=== PATIENT | female | born 1990 | race Caucasian/White ===

== ENCOUNTER → 2017-04-19 | Outpatient (CLI) | payer OTHER ==
[2017-04-19 16:35] LABS: HGB 10.6 gm/dL (11.4-16.0); MCH 30.7 pg (25.0-35.0); MCV 90.3 fL (80.0-100.0); Mean Platelet Volume 8.2; Platelet Count 213 k/uL (150-450); RBC 3.44 m/uL (3.80-5.40); RDW 13.5 % (11.5-15.5); WBC 8.9 k/uL (3.8-10.6)
[2017-04-19 16:38] LABS: Glucose 94 mg/dL (74-99)
[2017-04-20 01:23] LABS: HIV AB P24 Non-Reactive (Non-Reactive); HIV P24 AG Non-Reactive (Non-Reactive)
--- NOTE | 2017-04-20 07:49 | US ---
EXAMINATION TYPE: US OB <= 14 wk fetus DATE OF EXAM: 04/19/2017 COMPARISON: US 2017 CLINICAL HISTORY: Z36 Confirm Dates. Confirm dates, 3, para 2 EXAM PERFORMED: Transabdominal (TA) EXAM MEASUREMENTS: GESTATIONAL AGE / DATING Physician Established: (14 weeks/1 days) EDC: 10/17/2017 Dates by LMP: (14 weeks/1 days) EDC: 10/17/2017 Dates by First Scan: No pole seen at this time Dates by Current Scan for: (13 weeks/4 days) EDC: 10/21/2017 MATERNAL ANATOMY Uterus: 15.3 x 10.0 x 7.2cm, anteverted Right Ovary: 4.3 x 2.4 x 2.3cm Left Ovary: 3.0 x 1.9 x 1.8cm Post CDS / Adnexa: wnl Presence of free fluid: no Presence of corpus luteal cyst: right ovary: 1.8 x 1.6 x 1.5cm hypoechoic area, probable corpus luteu m Presence of subchorionic bleed: no GESTATION / SURVEY CRL: 7.5cm (13 weeks/4 days) Yolk Sac (normal less than 6mm): not seen at this time Heart Rate: 142 bpm Rhythm: Normal IUP: Live IUP Date of LMP: 01/10/2017 Live single IUP measuring 13 weeks 4 days with a heart rate of 142bpm and an estimated delivery date of 10/21/2017. IMPRESSION: Single live intrauterine with a sonographic age of 13 weeks and 4 days and estimated date o f delivery of 10/21/2017. Dates are concordant with menstrual age.
== END | disposition home or self-care (01) ==
LOC: RADUSWWP 15:30
PROVIDERS: ATTEND Obstetrics & Gynecology
DX: Z36.89 Encounter for other specified antenatal screening (principal); O26.812 Pregnancy related exhaustion and fatigue, second trimester; Z3A.13 13 weeks gestation of pregnancy
CPT/HCPCS: 36415; 76801; 82565; 82947; 85027; 86762; 86780; 86850; 86900; 86901; 87340; 87390

== ENCOUNTER 2017-06-05 20:40 | Emergency (ER) | payer OTHER ==
[2017-06-05 21:02] VITALS: TEMP 98.6
[2017-06-05] MEDS ORDERED: SODIUM CHLORIDE 0.9% 1,000 ML IV STA ×2 (21:13→22:42)
--- NOTE | 2017-06-05 21:23 | ED ---
Dizziness HPI <Melecio Luciano - Last Filed: 06/05/17 22:58> - General Source: patient, RN notes reviewed Mode of arrival: wheelchair Limitations: no limitations <Diane Stone - Last Filed: 06/05/17 23:45> - General Chief Complaint: Dizziness Stated Complaint: Dizzy 20 wks Time Seen by Provider: 06/05/17 21:04 - History of Present Illness Initial Comments: This is a 26-year-old female who is 20 weeks who presents to the emergency department with chief complaint of dizziness. Patient states that for the last week she has been having episodes of dizziness, where she feels that she is going to pass out. Patient states that dizziness comes on frequently throughout the day and is not dependent on position. However, she does state that she experiences less episodes of dizziness while she is sitting down. She states that she has been trying to stay hydrated by drinking playing of fluids. She states that earlier today she was standing up when the dizziness came on. She felt like she was going to pass out and that her vision was tunneling. She states that she sat down and gradually the dizziness went away. Patient denies any abdominal pain, nausea or vomiting, diarrhea or constipation, vaginal bleeding or discharge. (Diane Stone) - Related Data Home Medications Medication Instructions Recorded Confirmed Hix-Ctae-Tfheq Acid 1 cap PO HS 06/05/17 06/05/17 [-U Capsule (formulary)] Allergies Allergy/AdvReac Type Severity Reaction Status Date / Time No Known Allergies Allergy Verified 06/05/17 21:38 Review of Systems ROS Other: All systems not noted in ROS Statement are negative. <Melecio Luciano - Last Filed: 06/05/17 22:58> ROS Other: All systems not noted in ROS Statement are negative. <Diane Stone - Last Filed: 06/05/17 23:45> ROS Statement: Those systems with pertinent positive or pertinent negative responses have been documented in the HPI. Past Medical History Past Medical History: No Reported History History of Any Multi-Drug Resistant Organisms: None Reported Past Surgical History: No Surgical Hx Reported Past Psychological History: No Psychological Hx Reported Smoking Status: Current every day smoker Past Alcohol Use History: Rare Past Drug Use History: None Reported <Diane Stone - Last Filed: 06/05/17 23:45> General Exam <Melecio Luciano - Last Filed: 06/05/17 22:58> Limitations: no limitations <Diane Stone - Last Filed: 06/05/17 23:45> - General Exam Comments Initial Comments: General: Awake and alert, well-developed; in no apparent distress. HEENT: Head atraumatic, normocephalic. Pupils are equal, round and reactive to light. Extraocular movements intact. Oropharynx moist without erythema or exudate. Neck: Supple. Normal ROM. Cardiovascular: Regular rate and rhythm. No murmurs, rubs or gallops. Chest symmetrical. Respiratory: Lungs clear to auscultation bilaterally. No wheezes, rales or rhonchi. Normal respiratory effort with no use of accessory muscles. Abdomen: Soft, non-tender, non-distended. No rigidity, rebound or guarding. Normal bowel sounds in all 4 quadrants. Musculoskeletal: Normal ROM, no tenderness bilateral upper and lower extremities. Ambulating normally. Skin: [place], warm and dry without rashes or lesions. Neurological: Alert and oriented x3. CN II-XII grossly intact. Speech is fluent and answers are appropriate. No focal neuro deficits. Psychiatric: Normal mood and affect. No overt signs of depression or anxiety noted. (Diane Stone) Vital Signs 06/05/17 06/05/17 06/05/17 20:57 21:55 22:30 Temperature 98.6 F Pulse Rate 110 H 84 83 Respiratory 20 19 16 Rate Blood Pressure 113/66 95/66 89/56 O2 Sat by Pulse 99 100 100 Oximetry 06/05/17 06/05/17 23:00 23:43 Temperature Pulse Rate 82 77 Respiratory 16 16 Rate Blood Pressure 97/63 92/58 O2 Sat by Pulse 99 100 Oximetry EKG Findings - EKG Comments: EKG Findings:: 21:18:56. Normal sinus rhythm. Ventricular 76 bpm, SD interval 134, QRS duration 82, QT/QTC 384/432. <Diane Stone - Last Filed: 06/05/17 23:45> Medical Decision Making - Lab Data Result diagrams: 06/05/17 21:25 06/05/17 21:25 <Melecio Luciano - Last Filed: 06/05/17 22:58> - Lab Data Result diagrams: 06/05/17 21:25 06/05/17 21:25 <Diane Stone - Last Filed: 06/05/17 23:45> - Medical Decision Making 20 several female approximately 20 weeks presenting with lightheadedness and near syncope. Patient has no associated symptoms, no URI symptoms, no fever, no dysuria, no abdominal pain, no vaginal discharge or vaginal bleeding. heart tones are normal. Patient is given IV hydration emergency department for mild hypertension. Case is discussed with Dr. Perez who is patient's RAMP SERVICE AGENT, he recommends continue oral rehydration and outpatient follow-up. (Melecio Luciano) This is a 26-year-old female presents to the emergency department with chief complaint of dizziness. Patient is currently 20 weeks . Patient denies any associated symptoms such as nausea or vomiting, vaginal bleeding or discharge, abdominal pain. CBC revealed a hemoglobin of 9.6. CMP and urinalysis were unremarkable. Throughout emergency department visit, patient was noted to be hypotensive. She received 2 L boluses of normal saline. This case was discussed with attending physician, Dr. Luciano who was in contact with patient's RAMP SERVICE AGENT, Dr. Dumont. It was recommended that patient be discharged home with oral rehydration. She is to follow-up with SYSTEM DEVELOPMENT MANAGER. Patient is in no acute distress and will be discharged home. She is in agreement voices understanding. All questions were answered. (Diane Stone) - Lab Data Lab Results 06/05/17 06/05/17 06/05/17 Range/Units 21:25 21:25 21:25 WBC 7.3 (3.8-10.6) k/uL RBC 3.24 L (3.80-5.40) m/uL Hgb 9.6 L (11.4-16.0) gm/dL Hct 28.7 L (34.0-46.0) % MCV 88.5 (80.0-100.0) fL MCH 29.5 (25.0-35.0) pg MCHC 33.4 (31.0-37.0) g/dL RDW 13.3 (11.5-15.5) % Plt Count 234 (150-450) k/uL Neutrophils % 63 % Lymphocytes % 27 % Monocytes % 5 % Eosinophils % 3 % Basophils % 0 % Neutrophils # 4.5 (1.3-7.7) k/uL Lymphocytes # 2.0 (1.0-4.8) k/uL Monocytes # 0.4 (0-1.0) k/uL Eosinophils # 0.2 (0-0.7) k/uL Basophils # 0.0 (0-0.2) k/uL Sodium 136 L (137-145) mmol/L Potassium 4.0 (3.5-5.1) mmol/L Chloride 108 H (98-107) mmol/L Carbon Dioxide 20 L (22-30) mmol/L Anion Gap 8 mmol/L BUN 8 (7-17) mg/dL Creatinine 0.52 (0.52-1.04) mg/dL Est GFR (CKD-EPI)AfAm >90 (>60 ml/min/1.73 sqM) Est GFR (CKD-EPI)NonAf >90 (>60 ml/min/1.73 sqM) Glucose 82 (74-99) mg/dL Calcium 8.6 (8.4-10.2) mg/dL Total Bilirubin 0.4 (0.2-1.3) mg/dL AST 23 (14-36) U/L ALT 39 (9-52) U/L Alkaline Phosphatase 55 (38-126) U/L Total Protein 6.0 L (6.3-8.2) g/dL Albumin 3.3 L (3.5-5.0) g/dL Urine Color Yellow Urine Appearance Turbid H (Clear) Urine pH 6.5 (5.0-8.0) Ur Specific [place] 1.016 (1.001-1.035) Urine Protein Negative (Negative) Urine Glucose (UA) Negative (Negative) Urine Ketones Negative (Negative) Urine Blood Negative (Negative) Urine Nitrite Negative (Negative) Urine Bilirubin Negative (Negative) Urine Urobilinogen <2.0 (<2.0) mg/dL Ur Leukocyte Esterase Negative (Negative) Urine RBC 16 H (0-5) /hpf Ur Squamous Epith Cells 1 (0-4) /hpf Amorphous Sediment Rare H (None) /hpf Urine Mucus Few H (None) /hpf Disposition <Melecio Luciano - Last Filed: 03/20/18 22:58> <Diane Stone - Last Filed: 06/05/17 23:45> Clinical Impression: Dizziness Disposition: HOME SELF-CARE Condition: Good Instructions: Dizziness (ED) Additional Instructions: Please increase oral fluid intake. Please follow up with Dr. Dumont within the next couple of days. Please follow up with primary care provider within 1-2 days. Return to emergency department if symptoms should worsen or any concerns arise. Referrals: Frank Fuentes Jr, DO [Primary Care Provider] - 1-2 days
[2017-06-05 21:33] LABS: Basophils % (A) 0 %; Eosinophils # (A) 0.2 k/uL (0-0.7); Eosinophils % (A) 3 %; HCT 28.7 % (34.0-46.0); HGB 9.6 gm/dL (11.4-16.0); Lymphocytes % (A) 27 %; MCH 29.5 pg (25.0-35.0); MCHC 33.4 g/dL (31.0-37.0); MCV 88.5 fL (80.0-100.0); Mean Platelet Volume 7.7; Monocytes # (A) 0.4 k/uL (0-1.0); Monocytes % (A) 5 %; Neutrophils # (A) 4.5 k/uL (1.3-7.7); Neutrophils % (A) 63 %; Platelet Count 234 k/uL (150-450); RBC 3.24 m/uL (3.80-5.40); RDW 13.3 % (11.5-15.5); WBC 7.3 k/uL (3.8-10.6)
[2017-06-05 21:37] LABS: Amorphous Sediment,Urine Rare /hpf; Appearance,Urine Turbid (Clear); Bilirubin,Urine Negative (Negative); Blood,Urine Negative (Negative); Color,Urine Yellow; Glucose,Urine (UA) Negative (Negative); Ketones,Urine Negative (Negative); Leukocyte Esterase,Urine Negative (Negative); Mucus,Urine Few /hpf; Nitrite,Urine Negative (Negative); PH, Urine 6.5 (5.0-8.0); Protein,Urine Negative (Negative); RBC,Urine 16 /hpf (0-5); Specific Gravity,Urine 1.016 (1.001-1.035); Squamous Epithelial Cell,Urine 1 /hpf (0-4); Urobilinogen,Urine <2.0 mg/dL (<2.0)
[2017-06-05 21:53] LABS: ALT 39 U/L (9-52); AST 23 U/L (14-36); Albumin 3.3 g/dL (3.5-5.0); Alkaline Phosphatase 55 U/L (38-126); Anion Gap 8 mmol/L; Blood Urea Nitrogen 8 mg/dL (7-17); Calcium 8.6 mg/dL (8.4-10.2); Carbon Dioxide 20 mmol/L (22-30); Chloride 108 mmol/L (98-107); Glucose 82 mg/dL (74-99); Sodium 136 mmol/L (137-145); Total Bilirubin 0.4 mg/dL (0.2-1.3)
[2017-06-05 22:38] VITALS: RESP 16
[2017-06-05 23:44] VITALS: BP 92/58; PULSE 77
== END 2017-06-06 00:20 | disposition home or self-care (01) ==
LOC: EC 20:40
DX: O99.89 Other specified diseases and conditions complicating pregnancy, childbirth and the puerperium (principal); R42 Dizziness and giddiness; O99.332 Smoking (tobacco) complicating pregnancy, second trimester; F17.200 Nicotine dependence, unspecified, uncomplicated; Z3A.20 20 weeks gestation of pregnancy
CPT/HCPCS: 36415; 80053; 81001; 85025; 93005; 99284

== ENCOUNTER 2017-06-11 08:41 | Outpatient (CLI) | payer OTHER ==
[2017-06-11 09:18] VITALS: BP 96/51; PULSE 83; RESP 18; TEMP 98.1
--- NOTE | 2017-06-13 20:19 | P.MSEPDOC ---
Presenting Problems - Arrival Data Date of Arrival on Unit: 06/11/17 Time of Arrival on Unit: 08:50 Mode of Transport: Wheelchair - Complaint OB-Reason for Admission/Chief Complaint: Pain Medical History - Information : 3 Para: 2 Term: 2 : 0 Abortions: Spontaneous or Elective: 0 Number of Living Children: 2 - Gestational Age Gestational Age by LOVE (wks/days): 21 Weeks and 1 Days Review of Systems - Review of Systems Constitutional: No problems Breast: No problems ENT: No problems Cardiovascular: No problems Respiratory: No problems Gastrointestinal: No problems Genitourinary: No problems Musculoskeletal: No problems Neurological: No problems Skin: No problems Vital Signs - Temperature Temperature: 98.1 F Temperature Source: Temporal Artery Scan - Pulse Right Brachial Pulse Rate: 83 - Respirations Respiratory Rate: 18 Oxygen Delivery Method: Room Air O2 Sat by Pulse Oximetry: 97 - Blood Pressure Right Arm Blood Pressure: 96/51 Blood Pressure Mean: 66 Blood Pressure Source: Automatic Cuff Medical Screen Scoring (Pre) - Cervical Exam Dilation: 0 cm = 0 Membranes: Intact - Uterine Contractions Frequency: N/A - Maternal Vital Signs Maternal Temperature: N/A Maternal Blood Pressure: N/A Signs of Preeclampsia: N/A Maternal Respirations: N/A - Pain Assessment Pain Location and Character: Back, Abdomen Pain Scale Used: Numeric (1 - 10) Pain Intensity: 5 Pain Management Goal: 2 Pain Description: *Acute, Cramping Pain Frequency: Intermittent Pain Behavior: Vocalization Pain Aggravating Factors: Walking Non-Pharmacological Interventions: Darkened Room, Distraction, Reduce Environmental Stimuli, Relaxation Technique - Assessment Baseline FHR: 128 Heart Rate - NICHD Category: Category I (Normal) = 0 Position: N/A Station: N/A - Total Score Total Score (Pre): 0 Physician Notification (Pre) - Physician Notified Physician Notified Date: 06/11/17 Physician Notified Time: 09:38 Physician/Practitioner Notifed:: dr monterroso Spoke With: dr monterroso - Notification Comment Comment: may discharge home Disposition - Disposition OB Disposition: Triage, Discharge to home, Written follow up instructions reviewed Discharge Date: 06/11/17 Discharge Time: 09:45 I agree with the RN Medical Screening Exam: Yes Risk & Benefit of care provided described in d/c instruction: Yes Diagnosis: FALSE LABOR BEFORE 37 COMPLETED WEEKS OF GEST, THIRD TRI
== END 2017-06-11 09:45 | disposition home or self-care (01) ==
LOC: FBPOP 08:41
PROVIDERS: ATTEND Obstetrics & Gynecology
DX: O47.03 False labor before 37 completed weeks of gestation, third trimester (principal); Z3A.21 21 weeks gestation of pregnancy
CPT/HCPCS: 99213

== ENCOUNTER → 2017-07-16 | Outpatient (CLI) | payer OTHER ==
[2017-07-16 11:50] LABS: HCT 28.3 % (34.0-46.0); HGB 9.5 gm/dL (11.4-16.0); MCH 30.3 pg (25.0-35.0); MCHC 33.6 g/dL (31.0-37.0); MCV 90.1 fL (80.0-100.0); Mean Platelet Volume 7.8; Platelet Count 244 k/uL (150-450); RBC 3.14 m/uL (3.80-5.40); RDW 13.5 % (11.5-15.5); WBC 10.2 k/uL (3.8-10.6)
== END | disposition home or self-care (01) ==
LOC: LABWHC1 10:32
PROVIDERS: ATTEND Obstetrics & Gynecology
DX: Z34.82 Encounter for supervision of other normal pregnancy, second trimester (principal)
CPT/HCPCS: 36415; 82950; 85027

== ENCOUNTER 2017-10-10 07:54 | Inpatient (IN) | payer OTHER ==
[2017-10-10] MEDS: LACTATED RINGERS 1,000 ML IV SCH ×2 (08:45→12:38)
[2017-10-10] MEDS ORDERED: OXYTOCIN 10 UNIT/ML 1 ML VIAL IM PRN (08:52)
[2017-10-10] MEDS ORDERED: LIDOCAINE 1% (PF) 10 MG/ML (30 ML SDV) SQ PRN (08:52)
[2017-10-10] MEDS ORDERED: CARBOPROST TROMETHAMINE 250 MCG/ML 1 ML AMP IM PRN (08:52)
[2017-10-10] MEDS ORDERED: TERBUTALINE 1 MG/ML VIAL SQ PRN (08:52)
[2017-10-10] MEDS ORDERED: METHYLERGONOVINE 0.2 MG/ML 1 ML AMP IM PRN (08:52)
[2017-10-10] MEDS ORDERED: OXYTOCIN 20 UNITS/1000 ML NS 1,000 ML IV SCH ×2 (09:00→14:33)
[2017-10-10 09:08] LABS: Basophils % (A) 0 %; Eosinophils # (A) 0.2 k/uL (0-0.7); Eosinophils % (A) 1 %; HCT 28.7 % (34.0-46.0); HGB 9.3 gm/dL (11.4-16.0); Lymphocytes # (A) 1.8 k/uL (1.0-4.8); Lymphocytes % (A) 18 %; MCH 27.7 pg (25.0-35.0); MCHC 32.4 g/dL (31.0-37.0); MCV 85.6 fL (80.0-100.0); Mean Platelet Volume 7.2; Monocytes # (A) 0.4 k/uL (0-1.0); Monocytes % (A) 4 %; Neutrophils # (A) 7.7 k/uL (1.3-7.7); Neutrophils % (A) 74 %; Platelet Count 306 k/uL (150-450); RBC 3.35 m/uL (3.80-5.40); RDW 14.5 % (11.5-15.5); WBC 10.4 k/uL (3.8-10.6)
[2017-10-10 09:18] VITALS: BMI 32.3
--- NOTE | 2017-10-10 10:54 | P.HPOB ---
History of Present Illness H&P Date: 10/10/17 Chief Complaint: Leaking of fluid. This patient is a pleasant 27-year-old 3 para 2 female estimated date of confinement 10/21/2017 estimated gestational age 38-1/2 weeks who presents to labor and delivery with complaint a gush of fluid around 6 this morning. Patient's found to have gross rupture membranes in early labor. care has been uncomplicated, with the exception of chronic anemia. Review of Systems Constitutional: Denies chills, Denies fever Gastrointestinal: Reports heartburn Genitourinary: Reports Menstruation: Reports amenorrhea Past Medical History Past Medical History: Asthma Additional Past Medical History / Comment(s): Chronic anemia History of Any Multi-Drug Resistant Organisms: None Reported Past Surgical History: No Surgical Hx Reported Past Anesthesia/Blood Transfusion Reactions: No Reported Reaction Past Psychological History: No Psychological Hx Reported Smoking Status: Never smoker Past Alcohol Use History: None Reported Past Drug Use History: None Reported - Past Family History Father Family Medical History: No Reported History Medications and Allergies Home Medications Medication Instructions Recorded Confirmed Type Pje-Kaaa-Nshfg Acid 1 cap PO HS 06/05/17 10/10/17 History [-U Capsule (formulary)] Allergies Allergy/AdvReac Type Severity Reaction Status Date / Time No Known Allergies Allergy Verified 06/11/17 09:07 Exam Vital Signs Temp Pulse Resp BP Pulse Ox 10/10/17 09:05 98.2 F 98 17 112/65 98 10/10/17 07:58 98.3 F 98 17 112/65 99 Intake and Output 10/09/17 10/10/17 10/10/17 22:59 06:59 14:59 Other: Weight 90.718 kg - OBG Physical Exam Abdomen: bowel sounds normal, no diffuse tenderness, no bruit present, no guarding noted, no hepatomegaly, no splenomegaly, no mass Vulva: both: normal Vagina: no discharge Cervix: no lesion (Cervix is 4 cm dilated 80% effaced.), no discharge Uterus: enlarged (Fundal height is 38 cm) Results blood work shows she is A positive, rubella immune, RPR nonreactive, hepatitis B is negative, HIV is nonreactive, Glucola was normal, ultrasounds have been normal, group B strep was negative Result Diagrams: 10/10/17 08:45 Abnormal Lab Results - Last 24 Hours (Table) 10/10/17 Range/Units 08:45 RBC 3.35 L (3.80-5.40) m/uL Hgb 9.3 L (11.4-16.0) gm/dL Hct 28.7 L (34.0-46.0) % Assessment and Plan Assessment: This is a pleasant 27-year-old 3 para 2 female 38 and half weeks gestation with spontaneous rupture membranes. Plan is augmentation of labor as needed and anticipate vaginal delivery. (1) Spontaneous rupture of amniotic membranes Current Visit: Yes Status: Acute Code(s): [id number] - SNOMED Code(s): 155394800 (2) Third trimester Current Visit: Yes Status: Acute Code(s): Z34.93 - ENCNTR FOR SUPRVSN OF NORMAL PREG, UNSP, THIRD TRIMESTER SNOMED Code(s): 11076793
--- NOTE | 2017-10-10 10:55 | P.MSEPDOC ---
Presenting Problems - Arrival Data Date of Arrival on Unit: 10/10/17 Time of Arrival on Unit: 08:30 Mode of Transport: Ambulatory - Complaint OB-Reason for Admission/Chief Complaint: Rule Out SROM Comment: pt reports feeling large gush of fluid at 0645 this am Medical History - Information : 3 Para: 2 Term: 2 : 0 Abortions: Spontaneous or Elective: 0 Number of Living Children: 2 - Gestational Age Gestational Age by LOVE (wks/days): 38 Weeks and 3 Days Review of Systems - Review of Systems Constitutional: No problems Breast: No problems ENT: No problems Cardiovascular: No problems Respiratory: No problems Gastrointestinal: No problems Genitourinary: No problems Musculoskeletal: No problems Neurological: No problems Skin: No problems Vital Signs - Temperature Temperature: 98.2 F Temperature Source: Oral - Pulse Right Brachial Pulse Rate: 98 Pulse Assessment Method: Automatic Cuff - Respirations Respiratory Rate: 17 Oxygen Delivery Method: Room Air O2 Sat by Pulse Oximetry: 98 - Blood Pressure Right Arm Blood Pressure: 112/65 Blood Pressure Mean: 80 Blood Pressure Source: Automatic Cuff Medical Screen Scoring (Pre) - Cervical Exam Dilation: 4-7 cm = 2 Effacement: More than 50% = 2 Membranes: Ruptured = 3 - Uterine Contractions Frequency: > 5 minutes apart = 1 Duration: > 40 seconds = 2 Intensity: N/A - Maternal Vital Signs Maternal Temperature: N/A Maternal Blood Pressure: N/A Signs of Preeclampsia: N/A Maternal Respirations: N/A - Pain Assessment Pain Location and Character: Abdomen Pain Scale Used: Numeric (1 - 10) Pain Intensity: 2 Pain Management Goal: 4 Pain Description: *Acute, Cramping Pain Radiation Location: none Pain Frequency: Occasional Pain Duration: 2 Pain Duration Units: Hours Pain Behavior: None Exhibited Pain Aggravating Factors: Contractions - Maternal Trauma Maternal Trauma: N/A - Assessment Baseline FHR: 135 Heart Rate - NICHD Category: Category I (Normal) = 0 NST: Reactive Position: N/A Station: N/A - Total Score Total Score (Pre): 10 - Level of Risk Level of Risk: High (10+) Physician Notification (Pre) - Physician Notified Physician Notified Date: 10/10/17 Physician Notified Time: 08:11 Physician/Practitioner Notifed:: Dr Dumont Spoke With: Dr Dumont New Order Received: Yes (pt will be admitted to [facility] for labor) Disposition - Disposition OB Disposition: Admit Discharge Date: 10/10/17 Discharge Time: 08:30 I agree with the RN Medical Screening Exam: Yes Risk & Benefit of care provided described in d/c instruction: Yes Diagnosis: ENCOUNTER FOR FULL-TERM UNCOMPLICATED DELIVERY
[2017-10-10] MEDS ORDERED: ROPIVACAINE 100 MG, fentaNYL (PF) 200 MCG in SODIUM CHLORIDE 0.9% 76 ML EPIDURAL ONE (13:49)
[2017-10-10] MEDS ORDERED: ACETAMINOPHEN TAB 325 MG TAB PO PRN (14:33)
[2017-10-10] MEDS ORDERED: ZOLPIDEM 5 MG TAB PO PRN (14:33)
[2017-10-10] MEDS ORDERED: LANOLIN CREAM 5 GM TUBE TOPICAL PRN (14:33)
[2017-10-10] MEDS ORDERED: BENZOCAINE/MENTHOL SPRAY 1 GM/SPRAY AEROSOL TOPICAL PRN (14:33)
[2017-10-10] MEDS ORDERED: HYDROCORTISONE 2.5% RECTAL CREAM 30 GM TUBE RECTAL PRN (14:33)
[2017-10-10] MEDS ORDERED: SIMETHICONE 80 MG CHEWABLE PO PRN (14:33)
[2017-10-10] MEDS ORDERED: IBUPROFEN 600 MG TAB PO PRN (14:33)
[2017-10-10] MEDS ORDERED: diphenhydrAMINE 25 MG CAP PO PRN (14:33)
[2017-10-10] MEDS ORDERED: diphenhydrAMINE 50 MG/ML 1 ML VIAL IVP PRN (14:33)
[2017-10-10] MEDS ORDERED: BISACODYL 10 MG SUPP RECTAL PRN (14:33)
[2017-10-10 14:47] VITALS: RESP 16
--- NOTE | 2017-10-10 17:25 | P.PROBDLV ---
Vaginal Delivery Note - . Vaginal Delivery Note: Deneen progressed to complete and pushing with spontaneous vaginal delivery of a viable male over an intact perineum. Following delivery of the head anterior posterior shoulders were delivered with gentle downward upper traction followed by the remainder of the baby. Mouth and nares were then bulb suctioned and the baby was placed on mother's abdomen where the umbilical cord was clamped and cut in usual fashion an nursery personnel was present to assume care. Placenta was then delivered intact and Pitocin was added to the IV. scores were 8 and 9 at one and 5 minutes respectively and the weight was 6 lbs. 14 oz. Both mother and baby are stable following delivery.
[2017-10-10] MEDS: WITCH HAZEL 1 EACH MED..PAD TOPICAL PRN ×2 (18:48→18:49)
[2017-10-10] MEDS: SENNOSIDES-DOCUSATE SODIUM 1 EACH TAB PO SCH (20:39)
[2017-10-10] MEDS: IRON AG/C/B12/CA/SUC.ACID/STOM 1 EACH TAB PO SCH (21:36)
[2017-10-11] MEDS ORDERED: SENNOSIDES-DOCUSATE SODIUM 1 EACH TAB PO ONE (04:00)
[2017-10-11 08:09] VITALS: BP 107/63; PULSE 78; TEMP 98.4
[2017-10-11] MEDS: IRON AG/C/B12/CA/SUC.ACID/STOM 1 EACH TAB PO SCH (08:57)
--- NOTE | 2017-10-11 08:59 | P.DS ---
Providers Date of admission: 10/10/17 08:27 Expected date of discharge: 10/11/17 Attending physician: Severino Dumont [facility] Course: This is a 27-year-old female 3 para 2 who presented with spontaneous rupture membranes. She underwent oxytocin augmentation of labor and delivered vaginally a viable female on 10/10/2017 with scores of 8 at 1 minute and 9 at 5 minutes and infant weight of 6 lbs. 14 oz. Her course has been uncomplicated. She is bottle feeding. Lochia is decreasing. Pain is well-controlled with ibuprofen. Vital signs are stable. Abdomen is soft with fundus firm and nontender. Extremities show negative Homans. Impression is status post vaginal delivery day #1. Plan is to discharge home today. Routine instructions are given. She is advised to follow up with Dr. Dumont in the office in 6 weeks. She is advised to call the office if she has any further questions or concerns prior to her appointment time. Procedures: Spontaneous vaginal delivery of a viable female on 10/10/2017 Patient Condition at Discharge: Stable Plan - Discharge Summary New Discharge Prescriptions: New Ibuprofen [Motrin] 600 mg PO Q6HR PRN #60 tab PRN Reason: Mild Pain Or Fever >= 100.5 Continue Tdn-Uqsb-Kjsse Acid [-U Capsule (formulary)] 1 cap PO HS Discharge Medication List Umn-Tdph-Elbfl Acid [-U Capsule (formulary)] 1 cap PO HS [History] Ibuprofen [Motrin] 600 mg PO Q6HR PRN #60 tab 10/11/17 [Rx] Follow up Appointment(s)/Referral(s): Severino Dumont MD [STAFF PHYSICIAN] - 6 Weeks Activity/Diet/Wound Care/Special Instructions: Instructions 1. Do not begin any exercise program for 3 weeks. 2. Do not resume sexual relations for 3 weeks or longer if uncomfortable. 3. You may take tub baths or showers at any time. 4. You may use tampons if desired after 3 weeks. 5. Keep the area of episiotomy (stitches) clean and dry. 6. If you are not nursing, wear a good fitting, supportive bra during the day and limit fluid intake for at least 1 week to prevent breast engorgement. 7. Call the office, [phone], within the next week to make appointment for your 6 week checkup if it has not already been made. 8. Report any of the following occurrences to the doctor promptly: a. Heavy, excessive bleeding b. Chills, fever c. Burning or frequency of urination d. Pain or redness and breasts if nursing e. Increasing pain or swelling in episiotomy (stitches). In addition to the above instructions, the following additional should be followed: 1. No heavy lifting or straining (exercising) until after 6 week checkup. 2. Keep abdominal incision clean and dry: You may wear a dressing if more comfortable. 3. Make office appointment for 10 days after going home or as instructed by her doctor. Discharge Disposition: HOME SELF-CARE
[2017-10-11] MEDS: SENNOSIDES-DOCUSATE SODIUM 1 EACH TAB PO SCH (12:22)
== END 2017-10-11 15:30 | disposition home or self-care (01) | DRG 775 ==
LOC: FBPOP 07:54 → 4FBP 08:27
PROVIDERS: ADMIT Obstetrics & Gynecology; ATTEND Obstetrics & Gynecology
PROC: 10E0XZZ Delivery of Products of Conception, External Approach (ICD-10-PCS; principal; 2017-10-10)
PROC: 00HU33Z Insertion of Infusion Device into Spinal Canal, Percutaneous Approach (ICD-10-PCS; 2017-10-10)
PROC: 3E0R3BZ Introduction of Anesthetic Agent into Spinal Canal, Percutaneous Approach (ICD-10-PCS; 2017-10-10)
DX: O99.02 Anemia complicating childbirth (principal); Z37.0 Single live birth; D64.9 Anemia, unspecified; Z3A.38 38 weeks gestation of pregnancy; Z87.09 Personal history of other diseases of the respiratory system
CPT/HCPCS: 59025; 84112; 85025; 99213

== ENCOUNTER 2017-11-07 07:10 | Emergency (ER) | payer OTHER ==
[2017-11-07 07:15] VITALS: BP 112/69; PULSE 85; RESP 20; TEMP 98.1
--- NOTE | 2017-11-07 07:36 | ED ---
General Adult HPI - General Chief complaint: Skin/Abscess/Foreign Body Stated complaint: abscess female gu Time Seen by Provider: 11/07/17 07:10 Source: patient, RN notes reviewed Mode of arrival: ambulatory Limitations: no limitations - History of Present Illness Initial comments: This is a 27-year-old female who presents emergency department stating that she has an abscess in the right groin region. Patient states started yesterday as a small pimple and has continued to grow now it is larger and much more tender. Patient denies any drainage. Patient denies any erythema. Patient denies any fever or chills. Patient denies any vaginal draining. Patient denies any dysuria hematuria urinary frequency. Patient denies similar symptoms in the past. - Related Data Home Medications Medication Instructions Recorded Confirmed [id number] Acid 1 cap PO HS 06/05/17 10/10/17 [-U Capsule (formulary)] Previous Rx's Medication Instructions Recorded Ibuprofen [Motrin] 600 mg PO Q6HR PRN #60 tab 10/11/17 Amoxicillin/Potassium Clav 1 each PO Q12HR #20 tab 11/07/17 [Augmentin 875-125 Tablet] Allergies Allergy/AdvReac Type Severity Reaction Status Date / Time No Known Allergies Allergy Verified 11/07/17 07:15 Review of Systems ROS Statement: Those systems with pertinent positive or pertinent negative responses have been documented in the HPI. ROS Other: All systems not noted in ROS Statement are negative. Past Medical History Past Medical History: Asthma Additional Past Medical History / Comment(s): Chronic anemia History of Any Multi-Drug Resistant Organisms: None Reported Past Surgical History: No Surgical Hx Reported Past Anesthesia/Blood Transfusion Reactions: No Reported Reaction Past Psychological History: No Psychological Hx Reported Smoking Status: Current every day smoker Past Alcohol Use History: None Reported Past Drug Use History: None Reported - Past Family History Father Family Medical History: No Reported History General Exam - General Exam Comments Initial Comments: GENERAL: Patient is well-developed and well-nourished. Patient is nontoxic and well- hydrated and is in mild distress. ENT: Neck is soft and supple. No significant lymphadenopathy is noted. Oropharynx is clear. Moist mucous membranes. Neck has full range of motion without eliciting any pain. EYES: The sclera were anicteric and conjunctiva were pink and moist. Extraocular movements were intact and pupils were equal round and reactive to light. Eyelids were unremarkable. PULMONARY: Unlabored respirations. Good breath sounds bilaterally. No audible rales rhonchi or wheezing was noted. CARDIOVASCULAR: There is a regular rate and rhythm without any murmurs gallops or rubs. ABDOMEN: Soft and nontender with normal bowel sounds. GENITALIA There is an abscess lateral to the labia on the right which measures about 2 cm x 1 cm. SKIN: Skin is clear with no lesions or rashes and otherwise unremarkable. NEUROLOGIC: Patient is alert and oriented x3. Cranial nerves II through XII are grossly intact. Motor and sensory are also intact. Normal speech, volume and content. Symmetrical smile. MUSCULOSKELETAL: Normal extremities with adequate strength and full range of motion. LYMPHATICS: No significant lymphadenopathy is noted PSYCHIATRIC: Normal psychiatric evaluation. Limitations: no limitations Course Vital Signs 11/07/17 07:14 Temperature 98.1 F Pulse Rate 85 Respiratory 20 Rate Blood Pressure 112/69 O2 Sat by Pulse 98 Oximetry Procedures - Incision & Drainage Consent Obtained: verbal consent Time Out Performed?: Yes Site: other (Right groin) Anesthetic Used: lidocaine 1% I&D Cleaning Method: Betadine Scalpel Used: #15 Needle Aspiration Performed?: Yes Irrigation Performed?: No I&D Drainage Obtained: Pus Packing: Iodoform Culture Obtained?: Yes Complications: pain Patient Tolerated Procedure: well Disposition Clinical Impression: Abscess of groin, right Disposition: HOME SELF-CARE Condition: Good Instructions: Abscess Incision and Drainage (ED) Additional Instructions: Patient should do sitz baths twice a day when the gauze is removed in 3 days Prescriptions: Amoxicillin/Potassium Clav [Augmentin 875-125 Tablet] 1 each PO Q12HR #20 tab Is patient prescribed a controlled substance at d/c from ED?: No Referrals: None,Stated [Primary Care Provider] - 1-2 days Time of Disposition: 07:59
[2017-11-07] MEDS ORDERED: LIDOCAINE 1% INJ 10MG/ML (20 ML MDV) SQ STA (07:37)
== END 2017-11-07 08:14 | disposition home or self-care (01) ==
LOC: EC 07:10
DX: L02.214 Cutaneous abscess of groin (principal); F17.200 Nicotine dependence, unspecified, uncomplicated
CPT/HCPCS: 87070; 87205; 99283; 10060; J2001

== ENCOUNTER 2018-03-20 16:22 | Emergency (ER) | payer OTHER ==
[2018-03-20 17:33] VITALS: BP 115/68; PULSE 71; RESP 18; TEMP 98
== END 2018-03-20 23:02 | disposition left against medical advice (07) ==
LOC: EC 16:22
DX: R07.89 Other chest pain (principal); R09.89 Other specified symptoms and signs involving the circulatory and respiratory systems
CPT/HCPCS: 87502; 93005; 99499

== ENCOUNTER → 2018-10-14 | Outpatient (CLI) | payer OTHER ==
--- NOTE | 2018-10-14 07:28 | US ---
EXAMINATION TYPE: Transabdominal DATE OF EXAM: 10/14/2018 7:06 AM COMPARISON: NONE CLINICAL HISTORY: Z36 Confirm Dates. EXAM PERFORMED: Transabdominal (TA) EXAM MEASUREMENTS: GESTATIONAL AGE / DATING Physician Established: Not yet established Dates by LMP: 07/01/2018 (15 weeks/0 days) EDC: 04/07/2019 Dates by First Scan: No previous this is first scan Dates by Current Scan for: (13 weeks/0 days) EDC: 04/21/2019 MATERNAL ANATOMY Uterus: 13.6 x 8.9 x 12.6 cm Right Ovary: 3.2 x 3.4 x 2.2 cm Left Ovary: 2.4 x 2.1 x 1.5 cm Post CDS / Adnexa: wnl Presence of free fluid: none GESTATION / SURVEY CRL: 6.7 cm (13 weeks/0 days) Yolk Sac (normal less than 6mm): not seen Heart Rate: 147 bpm Rhythm: Normal IUP: Viable IUP Nuchal Translucency 10-14wks (normal less than 3mm): 2 mm Date of LMP: 07/01/2018, an estimate by patient Viable IUP that measures 13 weeks 0 days, does not correlate with LMP. IMPRESSION: Single viable intrauterine corresponding to ultrasound age 13 weeks 0 days with estimated d ate of delivery 04/21/2019
== END | disposition home or self-care (01) ==
LOC: RADUSWWP 06:44
PROVIDERS: ATTEND Obstetrics & Gynecology
DX: Z36.89 Encounter for other specified antenatal screening (principal); Z3A.13 13 weeks gestation of pregnancy
CPT/HCPCS: 76801; 76813

== ENCOUNTER 2019-01-30 01:20 | Outpatient (CLI) | payer OTHER ==
[2019-01-30 02:06] VITALS: BP 107/58; PULSE 84; RESP 18; TEMP 97.1
[2019-01-30 02:11] LABS: Appearance,Urine Clear (Clear); Bilirubin,Urine Negative (Negative); Blood,Urine Negative (Negative); Color,Urine Yellow; Glucose,Urine (UA) Negative (Negative); Ketones,Urine Negative (Negative); Leukocyte Esterase,Urine Negative (Negative); Nitrite,Urine Negative (Negative); Protein,Urine Trace (Negative); Specific Gravity,Urine 1.023 (1.001-1.035); Urobilinogen,Urine <2.0 mg/dL (<2.0)
--- NOTE | 2019-02-04 08:30 | P.MSEPDOC ---
Presenting Problems - Arrival Data Date of Arrival on Unit: 01/30/19 Time of Arrival on Unit: 01:20 Mode of Transport: Wheelchair - Complaint OB-Reason for Admission/Chief Complaint: Possible Onset of Labor, Pain Comment: Pt reports to triage with c/o back pain and contractions starting around 01/29. Medical History - Information : 4 Para: 3 Term: 3 : 0 Abortions: Spontaneous or Elective: 0 Number of Living Children: 3 - Gestational Age Gestational Age by LOVE (wks/days): 28 Weeks and 3 Days Review of Systems - Review of Systems Constitutional: No problems Breast: No problems ENT: No problems Cardiovascular: No problems Respiratory: No problems Gastrointestinal: No problems Genitourinary: No problems Musculoskeletal: No problems Neurological: No problems Skin: No problems Vital Signs - Temperature Temperature: 97.1 F Temperature Source: Temporal Artery Scan - Pulse Right Pulse Rate: 84 Pulse Assessment Method: Pulse Oximetry - Respirations Respiratory Rate: 18 Oxygen Delivery Method: Room Air - Blood Pressure Right Arm Blood Pressure: 107/58 Blood Pressure Mean: 74 Blood Pressure Source: Automatic Cuff Medical Screen Scoring (Pre) - Cervical Exam Dilation: Exam Deferred Effacement: Exam Deferred Membranes: Intact - Uterine Contractions Frequency: N/A Duration: N/A Intensity: N/A - Maternal Vital Signs Maternal Temperature: N/A Maternal Blood Pressure: N/A Signs of Preeclampsia: N/A Maternal Respirations: N/A - Maternal Trauma Maternal Trauma: N/A - Assessment - Baby A Baseline FHR: 135 Heart Rate - NICHD Category: Category I (Normal) = 0 NST: Reactive Position: N/A Station: N/A - Total Score - Baby A Total Score - Baby A: 0 - Total Score - Baby B Total Score - Baby B: 0 - Total Score - Baby C Total Score - Baby C: 0 - Level of Risk - Baby A Level of Risk - Baby A: Low (0-5) - Level of Risk - Baby B Level of Risk - Baby B: Low (0-5) - Level of Risk - Baby C Level of Risk - Baby C: Low (0-5) Physician Notification (Pre) - Physician Notified Physician Notified Date: 01/30/19 Physician Notified Time: 01:40 New Order Received: Yes (UA, FFN, Cervical exam.) Medical Screen Scoring (Post) - Cervical Exam Dilation: 0 cm = 0 Effacement: Exam Deferred Membranes: Intact - Uterine Contractions Frequency: N/A Duration: N/A Intensity: N/A - Maternal Vital Signs Maternal Temperature: N/A Maternal Blood Pressure: N/A Signs of Preeclampsia: N/A Maternal Respirations: N/A - Pain Assessment Pain Location and Character: Back, Abdomen Pain Scale Used: Numeric (1 - 10) Pain Intensity: 3 Pain Management Goal: 0 Pain Description: *Acute, Sharp Pain Frequency: Occasional Pain Duration Units: Minutes Pain Behavior: Vocalization Pain Aggravating Factors: Activity, Bending, Position - Maternal Trauma Maternal Trauma: N/A - Assessment - Baby A Heart Rate: 130 Heart Rate - NICHD Category: Category I (Normal) = 0 NST: Reactive Position: N/A Station: N/A - Total Score Total Score - Baby A: 0 Total Score - Baby B: 0 Total Score - Baby C: 0 - Post Treatment Level of Risk Post Treatment Level of Risk - Baby A: Low (0-5) Post Treatment Level of Risk - Baby B: Low (0-5) Post Treatment Level of Risk - Baby C: Low (0-5) Physician Notification (Post) - Physician Notified Physician Notified Date: 01/30/19 Physician Notified Time: 02:12 Physician/Practitioner Notified:: Lilian Spoke With: Lilian New Order Received: Yes (Send FFN. If negative d/c with follow up instructions.) - Notification Comment Comment: FFN results, negative. Pt d/c home with follow up instructions. Pt to call office later this morning for apt. Pt encouraged to return to triage if symptoms worsen. Pt verbalizes understanding. Discharge paper given to pt. Disposition - Disposition OB Disposition: Discharge to home Discharge Date: 01/30/19 Discharge Time: 03:10 I agree with the RN Medical Screening Exam: Yes Risk & Benefit of care provided described in d/c instruction: Yes Diagnosis: FALSE LABOR BEFORE 37 COMPLETED WEEKS OF GEST, THIRD TRI
== END 2019-01-30 03:10 | disposition home or self-care (01) ==
LOC: FBPOP 01:20
PROVIDERS: ATTEND Obstetrics & Gynecology
DX: O47.03 False labor before 37 completed weeks of gestation, third trimester (principal); Z3A.28 28 weeks gestation of pregnancy
CPT/HCPCS: 59025; 82731; 81003; G0463; 99213

== ENCOUNTER 2019-04-11 20:45 | Inpatient (IN) | payer OTHER ==
[2019-04-11] MEDS ORDERED: OXYTOCIN 10 UNIT/ML 1 ML VIAL IM PRN (22:31)
[2019-04-11] MEDS ORDERED: LIDOCAINE 0.5% (PF) 5 MG/ML (50 ML SDV) SQ PRN (22:31)
[2019-04-11] MEDS ORDERED: CARBOPROST TROMETHAMINE 250 MCG/ML 1 ML AMP IM PRN (22:31)
[2019-04-11] MEDS ORDERED: METHYLERGONOVINE 0.2 MG/ML 1 ML AMP IM PRN (22:31)
[2019-04-11] MEDS ORDERED: TERBUTALINE 1 MG/ML VIAL SQ PRN (22:31)
[2019-04-11] MEDS ORDERED: BUTORPHANOL 1 MG/ML 1 ML VIAL IV PRN (22:32)
[2019-04-11] MEDS ORDERED: LACTATED RINGERS 1,000 ML IV SCH (22:45)
[2019-04-11 22:46] LABS: Basophils # (A) 0.1 k/uL (0-0.2); Basophils % (A) 1 %; Eosinophils # (A) 0.1 k/uL (0-0.7); Eosinophils % (A) 1 %; HCT 27.7 % (34.0-46.0); HGB 8.9 gm/dL (11.4-16.0); Hypochromasia Slight; Lymphocytes # (A) 1.7 k/uL (1.0-4.8); Lymphocytes % (A) 16 %; MCH 25.7 pg (25.0-35.0); MCHC 31.9 g/dL (31.0-37.0); MCV 80.4 fL (80.0-100.0); Monocytes # (A) 0.4 k/uL (0-1.0); Monocytes % (A) 4 %; Neutrophils # (A) 8.2 k/uL (1.3-7.7); Neutrophils % (A) 76 %; Platelet Count 296 k/uL (150-450); RBC 3.45 m/uL (3.80-5.40); RDW 14.5 % (11.5-15.5); WBC 10.8 k/uL (3.8-10.6)
--- NOTE | 2019-04-11 23:53 | P.HPOB ---
History of Present Illness H&P Date: 04/11/19 Chief Complaint: Contractions This is a 28-year-old female 4 para 3 with an estimated date of confinement of 04/21/2019, estimated gestational age of 38-5/7 weeks, who presented to labor and delivery with complaints of contractions that became more regular over the last couple hours. She did make cervical change in triage and therefore is admitted for active labor. She denied any rupture of membranes. Her course has been with Dr. Dumont and has been uncomplicated per patient. labs: Hepatitis B surface antigen-negative RPR-nonreactive Rubella-immune Blood type-A+ antibody screen-negative HIV-nonreactive Hemoglobin-9.7 Random glucose-84 One hour Glucola-86 Group B streptococcus-negative Obstetrical history: . History of 3 vaginal deliveries at term. Social history: She is . She works in a factory. She does smoke approx imately 1 pack per day of cigarettes. Review of Systems Constitutional: Denies chills, Denies fever Eyes: denies blurred vision, denies pain Ears, nose, mouth and throat: Denies headache, Denies sore throat Cardiovascular: Denies chest pain, Denies shortness of breath Respiratory: Denies cough Gastrointestinal: Reports abdominal pain Genitourinary: Reports pelvic pain, Reports Musculoskeletal: Reports low back pain Integumentary: Denies pruritus, Denies rash Neurological: Denies numbness, Denies weakness Psychiatric: Denies anxiety, Denies depression Past Medical History Past Medical History: Asthma Additional Past Medical History / Comment(s): Chronic anemia History of Any Multi-Drug Resistant Organisms: None Reported Past Surgical History: No Surgical Hx Reported Past Anesthesia/Blood Transfusion Reactions: No Reported Reaction Past Psychological History: No Psychological Hx Reported Smoking Status: Current every day smoker Past Alcohol Use History: None Reported Past Drug Use History: None Reported - Past Family History Father Family Medical History: No Reported History Medications and Allergies Home Medications Medication Instructions Recorded Confirmed Type No Known Home Medications 04/11/19 04/11/19 History Allergies Allergy/AdvReac Type Severity Reaction Status Date / Time No Known Allergies Allergy Verified 04/11/19 21:33 Exam Osteopathic Statement: *. No significant issues noted on an osteopathic structural exam other than those noted in the History and Physical/Consult. Vital Signs Temp Pulse Resp BP 04/11/19 21:46 98.1 F 101 H 16 119/64 Intake and Output 04/11/19 04/11/19 04/12/19 14:59 22:59 06:59 Other: Weight 94.801 kg HEENT: Within normal limits Heart: Regular rate and rhythm Lungs: Clear to auscultation bilaterally Abdomen: Cervix: On admission to triage, initially is 4 cm with change to 5 cm over 1 hour time. Effacement is 80% and station is -2 station with bag of water palpated. heart tones: Category 1 Contractions: Every 6-8 minutes Extremities: Negative Homans Results Result Diagrams: 04/11/19 22:25 Abnormal Lab Results - Last 24 Hours (Table) 04/11/19 Range/Units 22:25 WBC 10.8 H (3.8-10.6) k/uL RBC 3.45 L (3.80-5.40) m/uL Hgb 8.9 L (11.4-16.0) gm/dL Hct 27.7 L (34.0-46.0) % Neutrophils # 8.2 H (1.3-7.7) k/uL Assessment and Plan (1) 38 weeks gestation of Current Visit: Yes Status: Acute Code(s): Z3A.38 - 38 WEEKS GESTATION OF SNOMED Code(s): 54970034 Plan: Admission for active labor. Expectant management. Epidural anesthesia if desired.
--- NOTE | 2019-04-11 23:55 | P.PROBDLV ---
Vaginal Delivery Note - . Vaginal Delivery Note: The patient fairly precipitously progressed to complete dilation. Without even pushing, the infant delivered across an intact perineum into the bed. Cord was clamped and cut and infant was given to mother to hold. Nose and mouth were bulb suctioned. A viable female is noted with scores of 8 at 1 minute and 9 at 5 minutes and weight of 7 lbs. 8 oz. Her placenta delivered shortly thereafter, intact, with a three-vessel cord. Uterus contracted well after oxytocin was given and uterine massage was carried out. Inspection of the perineum revealed no perineal lacerations. Estimated blood loss is approximately 100 mL's. Both mother and are in stable condition.
[2019-04-12] MEDS ORDERED: SIMETHICONE 80 MG CHEWABLE PO PRN (00:12)
[2019-04-12] MEDS ORDERED: ZOLPIDEM 5 MG TAB PO PRN (00:12)
[2019-04-12] MEDS ORDERED: LANOLIN CREAM 5 GM TUBE TOPICAL PRN (00:12)
[2019-04-12] MEDS ORDERED: IBUPROFEN 600 MG TAB PO PRN (00:12)
[2019-04-12] MEDS ORDERED: BENZOCAINE/MENTHOL SPRAY 1 GM/SPRAY AEROSOL TOPICAL PRN (00:12)
[2019-04-12] MEDS ORDERED: diphenhydrAMINE 50 MG/ML 1 ML VIAL IVP PRN ×2 (00:12)
[2019-04-12] MEDS ORDERED: diphenhydrAMINE 25 MG CAP PO PRN (00:12)
[2019-04-12] MEDS ORDERED: OXYTOCIN 20 UNITS/1000 ML NS 1,000 ML IV SCH (00:12)
[2019-04-12] MEDS ORDERED: WITCH HAZEL 1 EACH MED..PAD TOPICAL PRN (00:12)
[2019-04-12] MEDS ORDERED: HYDROCORTISONE 2.5% RECTAL CREAM 30 GM TUBE RECTAL PRN (00:12)
[2019-04-12] MEDS ORDERED: diphenhydrAMINE 50 MG CAP PO PRN (00:12)
[2019-04-12] MEDS ORDERED: ACETAMINOPHEN TAB 325 MG TAB PO PRN (00:12)
[2019-04-12 07:42] LABS: Basophils % (A) 0 %; Eosinophils # (A) 0.1 k/uL (0-0.7); Eosinophils % (A) 1 %; HCT 24.6 % (34.0-46.0); HGB 7.7 gm/dL (11.4-16.0); Hypochromasia Moderate; Lymphocytes # (A) 1.8 k/uL (1.0-4.8); Lymphocytes % (A) 17 %; MCH 25.6 pg (25.0-35.0); MCHC 31.2 g/dL (31.0-37.0); MCV 81.8 fL (80.0-100.0); Mean Platelet Volume 7.8; Monocytes # (A) 0.6 k/uL (0-1.0); Monocytes % (A) 5 %; Neutrophils # (A) 8.2 k/uL (1.3-7.7); Neutrophils % (A) 74 %; Platelet Count 241 k/uL (150-450); RDW 14.6 % (11.5-15.5)
[2019-04-12] MEDS: SENNOSIDES-DOCUSATE SODIUM 1 EACH TAB PO SCH ×2 (08:53→19:27)
--- NOTE | 2019-04-12 13:04 | P.PNOBGVD ---
Subjective - Subjective Principal diagnosis: Status post vaginal delivery day #1 Interval history: Patient is doing well. She is breast-feeding. Lochia is decreasing. Pain is fairly well controlled. Patient reports: Reports appetite normal, Reports voiding normally, Reports pain well controlled, Reports ambulating normally : doing well, nursing well Objective - Latest Vital Signs Latest vital signs: Vital Signs Temp Pulse Resp BP 04/12/19 08:00 98.3 F 70 16 107/69 04/12/19 04:00 98.4 F 91 16 102/60 04/12/19 01:45 98.1 F 74 16 96/55 04/12/19 01:15 97.4 F L 75 16 107/59 04/12/19 00:44 97.9 F 71 16 96/57 04/12/19 00:30 97.5 F L 64 16 95/60 04/12/19 00:15 96.4 F L 78 16 104/68 04/12/19 00:00 97.3 F L 71 16 103/64 04/11/19 23:45 97.8 F 16 04/11/19 21:46 98.1 F 101 H 16 119/64 Intake and Output 04/11/19 04/12/19 04/12/19 22:59 06:59 14:59 Other: # Voids 1 2 Weight 94.801 kg - Exam Extremities: Present: normal. Absent: tenderness Abdomen: Present: normal appearance, soft. Absent: distention, tenderness Uterus: Present: normal, firm. Absent: tenderness - Labs Labs: Abnormal Lab Results - Last 24 Hours (Table) 04/11/19 04/12/19 Range/Units 22:25 06:36 WBC 10.8 H 11.0 H (3.8-10.6) k/uL RBC 3.45 L 3.00 L (3.80-5.40) m/uL Hgb 8.9 L 7.7 L (11.4-16.0) gm/dL Hct 27.7 L 24.6 L (34.0-46.0) % Neutrophils # 8.2 H 8.2 H (1.3-7.7) k/uL Assessment and Plan Assessment: Status post vaginal delivery day #1 (1) 38 weeks gestation of Current Visit: Yes Status: Acute Code(s): Z3A.38 - 38 WEEKS GESTATION OF SNOMED Code(s): 96595455 Plan: We'll continue with care today. Anticipate discharge home tomorrow morning.
--- NOTE | 2019-04-12 13:07 | P.DS ---
Providers Date of admission: 04/11/19 22:07 Expected date of discharge: 04/12/19 Attending physician: Severino Dumont Primary care physician: Stated None - Discharge Diagnosis(es) (1) 38 weeks gestation of Current Visit: Yes Status: Acute Hospital Course: This is a 28-year-old female 4 para 3 at 38-5/7 weeks who presented in active labor. She delivered vaginally a viable female infant on 04/11/2019 with scores of 8 at 1 minute and 9 at 5 minutes and infant weight of 7 pounds 8.1 ounces. Her course has been uncomplicated. She is breast- feeding. Lochia is decreasing. Pain is well-controlled. Vital signs are stable. Abdomen is soft with fundus firm and nontender. Extremities show negative Homans. Impression is status post vaginal delivery day #1. Plan is to discharge home tomorrow morning. She will be given a prescription for ibuprofen and a breast pump. She is advised to follow up with Dr. Dumont in the office in 6 weeks. She is advised to call the office if she has any further questions or concerns prior to her appointment time. Procedures: Spontaneous vaginal delivery of a viable female on 04/11/2019 Patient Condition at Discharge: Stable Plan - Discharge Summary New Discharge Prescriptions: New Ibuprofen [Motrin] 600 mg PO Q6HR PRN #60 tab PRN Reason: Mild Pain Or Fever >= 100.5 Discharge Medication List Ibuprofen [Motrin] 600 mg PO Q6HR PRN #60 tab 04/12/19 [Rx] Follow up Appointment(s)/Referral(s): Severino Dumont MD [STAFF PHYSICIAN] - 6 Weeks Activity/Diet/Wound Care/Special Instructions: Instructions 1. Do not begin any exercise program for 3 weeks. 2. Do not resume sexual relations for 3 weeks or longer if uncomfortable. 3. You may take tub baths or showers at any time. 4. You may use tampons if desired after 3 weeks. 5. Keep the area of episiotomy (stitches) clean and dry. 6. If you are not nursing, wear a good fitting, supportive bra during the day and limit fluid intake for at least 1 week to prevent breast engorgement. 7. Call the office, [phone], within the next week to make appointment for your 6 week checkup if it has not already been made. 8. Report any of the following occurrences to the doctor promptly: a. Heavy, excessive bleeding b. Chills, fever c. Burning or frequency of urination d. Pain or redness and breasts if nursing e. Increasing pain or swelling in episiotomy (stitches). In addition to the above instructions, the following additional should be followed: 1. No heavy lifting or straining (exercising) until after 6 week checkup. 2. Keep abdominal incision clean and dry: You may wear a dressing if more comfortable. 3. Make office appointment for 10 days after going home or as instructed by her doctor. Discharge Disposition: HOME SELF-CARE
[2019-04-13 00:22] VITALS: PULSE 87
[2019-04-13 08:27] VITALS: BP 100/63; RESP 14; TEMP 98.1
[2019-04-13] MEDS: SENNOSIDES-DOCUSATE SODIUM 1 EACH TAB PO SCH (08:29)
== END 2019-04-13 12:43 | disposition home or self-care (01) | DRG 807 ==
LOC: FBPOP 20:45 → 4FBP 22:07
PROVIDERS: ADMIT Obstetrics & Gynecology; ATTEND Obstetrics & Gynecology
PROC: 10E0XZZ Delivery of Products of Conception, External Approach (ICD-10-PCS; principal; 2019-04-11)
DX: O99.334 Smoking (tobacco) complicating childbirth (principal); Z37.0 Single live birth; O99.52 Diseases of the respiratory system complicating childbirth; J45.909 Unspecified asthma, uncomplicated; F17.210 Nicotine dependence, cigarettes, uncomplicated; Z3A.38 38 weeks gestation of pregnancy
CPT/HCPCS: 59025; 85025; 86850; 86900; 86901; 99213

== ENCOUNTER 2019-10-27 11:23 | Emergency (ER) | payer OTHER ==
[2019-10-27] MEDS ORDERED: IPRATROPIUM-ALBUTEROL 3 ML NEB INHALATION STA (12:12)
--- NOTE | 2019-10-27 12:29 | XR ---
EXAMINATION TYPE: XR chest 2V DATE OF EXAM: 10/27/2019 COMPARISON: NONE TECHNIQUE: PA and lateral views submitted. HISTORY: Cough FINDINGS: The lungs are clear and there is no pneumothorax, pleural effusion, or focal pneumonia. No overt fa ilure. Hypertrophic change of the spine. Heart size normal. IMPRESSION: 1. No acute process.
--- NOTE | 2019-10-27 12:49 | ED ---
General Adult HPI - General Source: patient Mode of arrival: ambulatory <Duane Balderrama - Last Filed: 10/28/19 22:50> <Rosa Velasquez - Last Filed: 10/30/19 00:15> - General Chief complaint: Upper Respiratory Infection Stated complaint: fever/SOB/nausea Time Seen by Provider: 10/27/19 11:34 - History of Present Illness Initial comments: Patient is a 29-year-old female with history of asthma presenting to emergency Department with chief complaint of cough, congestion and shortness of breath. Patient reports symptoms began last night with continuous coughing. Patient states she was not able to sleep well due to the cough. Patient reports a productive cough with white/yellow sputum production. Patient reports intermittent wheezing especially this morning. States the cough has also improved throughout the day but it was worse last night and morning. States she is a daily smoker. Is not aware of any direct exposure to known Covid patient. No loss of taste or smell. No nausea or vomiting. No chest pain but does report intermittent shortness of breath especially after coughing fits. Patient reports this tends to occur when her asthma is exacerbated. Does report a sore throat and some sinus congestion with clear bilateral rhinorrhea. Does report chills but no fevers. (Duane Balderrama) - Related Data Previous Rx's Medication Instructions Recorded Ibuprofen [Motrin] 600 mg PO Q6HR PRN #60 tab 04/12/19 Azithromycin [Zithromax Z-pack] 0 mg PO DIRECTED #1 pack 10/27/19 methylPREDNISolone [Medrol Dose 4 mg PO DIRECTED #1 pack 10/27/19 Pack] Allergies Allergy/AdvReac Type Severity Reaction Status Date / Time No Known Allergies Allergy Verified 10/27/19 11:28 Review of Systems ROS Other: All systems not noted in ROS Statement are negative. <Duane Balderrama - Last Filed: 10/28/19 22:50> ROS Other: All systems not noted in ROS Statement are negative. <Rosa Velasquez - Last Filed: 10/30/19 00:15> ROS Statement: Those systems with pertinent positive or pertinent negative responses have been documented in the HPI. Past Medical History Past Medical History: Asthma Additional Past Medical History / Comment(s): Chronic anemia History of Any Multi-Drug Resistant Organisms: None Reported Past Surgical History: No Surgical Hx Reported Past Anesthesia/Blood Transfusion Reactions: No Reported Reaction Past Psychological History: No Psychological Hx Reported Smoking Status: Current every day smoker Past Alcohol Use History: None Reported Past Drug Use History: None Reported - Past Family History Father Family Medical History: No Reported History <Duane Balderrama - Last Filed: 10/28/19 22:50> General Exam General appearance: alert, in no apparent distress Head exam: Present: atraumatic, normocephalic, normal inspection Eye exam: Present: normal appearance, PERRL, EOMI Pupils: Present: normal accommodation ENT exam: Present: normal exam, normal oropharynx (Mild maxillary sinus tenderness. ENT examination unremarkable.), mucous membranes moist, TM's normal bilaterally, normal external ear exam Neck exam: Present: normal inspection, full ROM. Absent: tenderness Respiratory exam: Present: wheezes (Mild diffuse wheezing bilaterally.). Absent: respiratory distress, rhonchi, stridor, chest wall tenderness, accessory muscle use, decreased breath sounds Cardiovascular Exam: Present: regular rate, normal rhythm, normal heart sounds Extremities exam: Present: normal inspection, full ROM, normal capillary refill. Absent: tenderness Back exam: Present: normal inspection, full ROM. Absent: tenderness Neurological exam: Present: alert, oriented X3, normal gait Psychiatric exam: Present: normal affect, normal mood Skin exam: Present: warm, dry, intact, normal color <Duane Balderrama - Last Filed: 10/28/19 22:50> Course Vital Signs 10/27/19 10/27/19 10/27/19 11:25 12:22 12:30 Temperature 98.7 F Pulse Rate 64 68 72 Respiratory 20 Rate Blood Pressure 104/70 O2 Sat by Pulse 99 Oximetry 10/27/19 13:27 Temperature 98.6 F Pulse Rate 82 Respiratory 16 Rate Blood Pressure 109/63 O2 Sat by Pulse 99 Oximetry Medical Decision Making <Duane Balderrama - Last Filed: 10/28/19 22:50> <Rosa Velasquez - Last Filed: 10/30/19 00:15> - Medical Decision Making Patient is a 29-year-old female presenting to the emergency department chief complaint of cough and congestion. Patient does have history of asthma and is a smoker. On exam she does have bilateral wheezing. Patient was given DuoNeb treatment with improvement in symptoms. Chest x-ray shows no acute processes. EKG shows sinus rhythm with no ST or T-wave changes. Covid testing negative. Patient started on azithromycin and discharged with albuterol and a steroid pack. I counseled the patient for smoking cessation for greater than 3 minutes Return parameters were thoroughly discussed patient is a worsening agreeable. No chest pain or shortness of breath. Case discussed physician. (Duane Balderrama) I was available for consultation in the emergency department. The history and physical exam were done by the midlevel provider. I was consulted for this patients care. I reviewed the case with the midlevel provider and based on their presentation of the patient, I agree with the assessment, medical decision making and plan of care as documented. Chart was dictated using Hiri dictation software. Attempts were made to correct any dictation errors however some typographical errors may persist. Patient was seen during a national state of emergency due to the Covid-19 pandemic. (Rosa Velasquez) - Lab Data Lab Results 10/27/19 Range/Units 11:52 Coronavirus (PCR) Not Detected (Not Detected) Disposition Is patient prescribed a controlled substance at d/c from ED?: No Time of Disposition: 13:16 <Duane Balderrama - Last Filed: 10/28/19 22:50> <Rosa Velasquez - Last Filed: 10/30/19 00:15> Clinical Impression: Asthma exacerbation, Cough Disposition: HOME SELF-CARE Condition: Stable Instructions (If sedation given, give patient instructions): Asthma (DC) Additional Instructions: Take prescribed medication as directed. Stop smoking. Delayed taking the steroids until you test negative for the coronavirus. Use your albuterol inhaler daily. Take Tylenol only. Developed fever. Prescriptions: methylPREDNISolone [Medrol Dose Pack] 4 mg PO DIRECTED #1 pack Azithromycin [Zithromax Z-pack] 0 mg PO DIRECTED #1 pack Referrals: Frank Fuentes Jr, [Primary Care Provider] - 1-2 days
[2019-10-27 13:28] VITALS: BP 109/63; PULSE 82; RESP 16; TEMP 98.6
== END 2019-10-27 13:27 | disposition home or self-care (01) ==
LOC: EC 11:23
DX: J45.901 Unspecified asthma with (acute) exacerbation (principal); Z20.828 Contact with and (suspected) exposure to other viral communicable diseases; F17.200 Nicotine dependence, unspecified, uncomplicated; Z71.6 Tobacco abuse counseling
CPT/HCPCS: 99285; 99406; 94640; 93005; 71046; U0003

== ENCOUNTER 2022-12-27 14:47 | Emergency (ER) | payer OTHER ==
[2022-12-27] MEDS ORDERED: LIDOCAINE 1% INJ 10MG/ML (20 ML MDV) SQ ONE (16:05)
--- NOTE | 2022-12-27 16:33 | ED ---
General Adult HPI - General Chief complaint: Skin/Abscess/Foreign Body Stated complaint: Cyst on groin Time Seen by Provider: 12/27/22 15:37 Source: patient, RN notes reviewed, old records reviewed Mode of arrival: ambulatory - History of Present Illness Initial comments: 32-year-old female with pain and swelling in the right labia and vaginal region. Patient has had similar issues in the past. No fever. No diabetes. No drainage. - Related Data Previous Rx's Medication Instructions Recorded Ibuprofen [Motrin] 600 mg PO Q6HR PRN #60 tab 04/12/19 Azithromycin [Zithromax Z-pack (6 0 mg PO DIRECTED #1 pack 10/27/19 tabs)] methylPREDNISolone [Medrol Dose 4 mg PO DIRECTED #1 pack 10/27/19 Pack] Amoxic-Pot Clav 875-125Mg 1 tab PO Q12HR 10 Days #14 tab 12/27/22 [Augmentin 875-125] Sulfamethox-Tmp 800-160Mg [Bactrim 1 tab PO Q12HR #14 tab 12/27/22 DS 800-160 mg] Allergies Allergy/AdvReac Type Severity Reaction Status Date / Time No Known Allergies Allergy Verified 12/27/22 15:08 Review of Systems ROS Statement: Those systems with pertinent positive or pertinent negative responses have been documented in the HPI. ROS Other: All systems not noted in ROS Statement are negative. Past Medical History Past Medical History: Asthma Additional Past Medical History / Comment(s): Chronic anemia History of Any Multi-Drug Resistant Organisms: None Reported Past Surgical History: No Surgical Hx Reported Past Anesthesia/Blood Transfusion Reactions: No Reported Reaction Past Psychological History: No Psychological Hx Reported Smoking Status: Current every day smoker Past Alcohol Use History: None Reported Past Drug Use History: Marijuana - Past Family History Father Family Medical History: No Reported History General Exam General appearance: alert Head exam: Present: atraumatic, normocephalic Eye exam: Present: normal appearance ENT exam: Present: normal exam Neck exam: Present: normal inspection Respiratory exam: Present: normal lung sounds bilaterally. Absent: respiratory distress Cardiovascular Exam: Present: regular rate, normal rhythm GI/Abdominal exam: Absent: distended External exam: Present: swelling, other (Right-sided Bartholin's gland abscess approximately 3 cm) Extremities exam: Present: normal inspection, normal capillary refill Back exam: Present: normal inspection Neurological exam: Present: alert, oriented X3, CN II-XII intact. Absent: motor sensory deficit Psychiatric exam: Present: normal affect, normal mood Skin exam: Present: warm, dry Course Vital Signs 12/27/22 15:04 Temperature 98.5 F Pulse Rate 80 Respiratory 18 Rate Blood Pressure 110/66 O2 Sat by Pulse 100 Oximetry Medical Decision Making - Medical Decision Making Was pt. sent in by a medical professional or institution ([facility], [facility], urgent care, hospital, or fpc...) When possible be specific @ -No Did you speak to anyone other than the patient for history (EMS, parent, family, police, friend...)? What history was obtained from this source @ -No Did you review nursing and triage notes (agree or disagree)? Why? @ -I reviewed and agree with nursing and triage notes Were old charts reviewed (outside hosp., previous admission, EMS record, old EKG, old radiological studies, urgent care reports/EKG's, fpc records)? Report findings @ -No old charts were reviewed Differential Diagnosis (chest pain, altered mental status, abdominal pain women, abdominal pain men, vaginal bleeding, weakness, fever, dyspnea, syncope, headache, dizziness, GI bleed, back pain, seizure, CVA, palpatations, mental health, musculoskeletal)? @Bartholin gland cyst, Bartholin gland abscess, cellulitis EKG interpreted by me (3pts min.). @ -As above X-rays interpreted by me (1pt min.). @ -None done CT interpreted by me (1pt min.). @ -None done U/S interpreted by me (1pt. min.). @ -None done What testing was considered but not performed or refused? (CT, X-rays, U/S, labs)? Why? @ -None What meds were considered but not given or refused? Why? @ -None Did you discuss the management of the patient with other professionals (professionals i.e. [facility], [facility], lab, RT, psych nurse, certified social workers in health care, harness tier, teacher, command center officer, nurse outreach case manager)? Give summary @ -No Was smoking cessation discussed for >3mins.? @ -No Was critical care preformed (if so, how long)? @ -No Were there social determinants of health that impacted care today? How? (Homelessness, low income, unemployed, alcoholism, drug addiction, transportation, low edu. Level, literacy, decrease access to med. care, prison, rehab)? @ -No Was there de-escalation of care discussed even if they declined (Discuss DNR or withdrawal of care, Hospice)? DNR status @ -No What co-morbidities impacted this encounter? (DM, HTN, Smoking, COPD, CAD, Cancer, CVA, ARF, Chemo, Hep., AIDS, mental health diagnosis, sleep apnea, morbid obesity)? @ -None Was patient admitted / discharged? Hospital course, mention meds given and route, prescriptions, significant lab abnormalities, going to OR and other pertinent info. @ -32-year-old female with Bartholin gland abscess. Incision and drainage is performed emergency Department with word catheter placement antibiotic as prescribed. Will follow-up with cogeneration operator Dr. Dumont. Undiagnosed new problem with uncertain prognosis? @ -No Drug Therapy requiring intensive monitoring for toxicity (Heparin, Nitro, Insulin, Cardizem)? @ -No Were any procedures done? @ -Yes, incision and drainage Diagnosis/symptom? @Bartholin gland abscess Acute, or Chronic, or Acute on Chronic? @ -Acute Uncomplicated (without systemic symptoms) or Complicated (systemic symptoms)? @ -default Side effects of treatment? @ -No Exacerbation, Progression, or Severe Exacerbation? @ -No Poses a threat to life or bodily function? How? (Chest pain, [place], [place], pneumonia, PE, COPD, DKA, ARF, appy, cholecystitis, CVA, Diverticulitis, Homicidal, Suicidal, threat to staff... and all critical care pts) @ -No Disposition Clinical Impression: Bartholin's gland abscess Disposition: HOME SELF-CARE Condition: Good Instructions (If sedation given, give patient instructions): Abscess Incision and Drainage (ED), Bartholin Cyst (ED) Prescriptions: Amoxic-Pot Clav 875-125Mg [Augmentin 875-125] 1 tab PO Q12HR 10 Days #14 tab Sulfamethox-Tmp 800-160Mg [Bactrim DS 800-160 mg] 1 tab PO Q12HR #14 tab Is patient prescribed a controlled substance at d/c from ED?: No Referrals: Khuhsbu Lobo MD [Primary Care Provider] - 1-2 days Time of Disposition: 16:28
[2022-12-27 17:05] VITALS: BP 107/72; PULSE 87; RESP 14; TEMP 97.9
== END 2022-12-27 18:58 | disposition home or self-care (01) ==
LOC: EC 14:47
DX: N75.1 Abscess of Bartholin's gland (principal); J45.909 Unspecified asthma, uncomplicated; F17.200 Nicotine dependence, unspecified, uncomplicated; F12.90 Cannabis use, unspecified, uncomplicated
CPT/HCPCS: 56420; 99282; J2001

== ENCOUNTER → 2023-06-28 | Outpatient (CLI) | payer OTHER ==
--- NOTE | 2023-06-29 07:48 | XR ---
EXAMINATION TYPE: XR hand complete RT DATE OF EXAM: 06/28/2023 COMPARISON: NONE HISTORY: Pain TECHNIQUE: Three views are submitted. FINDINGS: The osseous structures are intact. The joint spaces are preserved and there is no acute fracture or dislocation. IMPRESSION: 1. No definite acute fracture or dislocation if symptoms persist, follow-up study in 7 to 10 days wo uld be suggested
== END | disposition home or self-care (01) ==
LOC: RADXRMAIN 16:14
PROVIDERS: ATTEND Internal Medicine
DX: S69.91XA Unspecified injury of right wrist, hand and finger(s), initial encounter (principal)

== ENCOUNTER → 2023-12-26 | Outpatient (CLI) | payer OTHER ==
--- NOTE | 2023-12-26 14:43 | US ---
EXAMINATION TYPE: US kidneys/renal and bladder DATE OF EXAM: 12/26/2023 COMPARISON: NONE CLINICAL INDICATION: Female, 33 years old with history of R10.9 R31.9 Z87.442 PERSONAL HISTORY OF URI NARY CA; UTI HX of stones x 5 years ago TECHNIQUE: Grayscale and color Doppler imaging of the bilateral kidneys and urinary bladder: FINDINGS: EXAM MEASUREMENTS: Right Kidney: 11.7 x 4.2 x 5.2 cm Left Kidney: 9.7 x 4.6 x 3.8 cm Right Kidney: No hydronephrosis or masses seen Left Kidney: No hydronephrosis or masses seen Bladder: Anechoic Bilateral Jets seen: Left only There is no evidence for hydronephrosis at this point in time. No nephrolithiasis is seen. No shai s are identified. The urinary bladder is anechoic. Renal cortical thickness and echogenicity mainta ined. IMPRESSION: Normal renal ultrasound. [facility], , 12/26/2023 2:40 PM
== END | disposition home or self-care (01) ==
LOC: RADUSWWP 13:47
PROVIDERS: ATTEND Internal Medicine
CPT/HCPCS: 76770

== ENCOUNTER → 2024-07-03 | Outpatient (CLI) | payer OTHER ==
--- NOTE | 2024-07-03 09:19 | XR ---
EXAMINATION TYPE: XR lumbar spine 3V DATE OF EXAM: 07/03/2024 9:14 AM COMPARISON: None CLINICAL INDICATION: Female, 34 years old with history of Low back pain M54.50; PHH, pain FINDINGS: 5 lumbar type vertebral bodies. Mild early facet degenerative changes lower lumbar spine. Vertebral b [place] and disc interspaces are preserved. Alignment is maintained. IMPRESSION: Mild early facet degenerative change lower lumbar spine. No vertebral compression collapse or malalig nment. [facility], Workstation: [email or web address], 07/03/2024 9:16 AM
== END | disposition home or self-care (01) ==
LOC: RADXRMAIN 08:53
PROVIDERS: ATTEND Internal Medicine
DX: M47.816 Spondylosis without myelopathy or radiculopathy, lumbar region (principal)
CPT/HCPCS: 72100